=== PATIENT | female | born 1990 | race Caucasian/White ===

== ENCOUNTER → 2024-07-17 14:01 | Outpatient (REF) | payer OTHER, SELFPAY | LOC: PNTC 14:01 | PROVIDERS: ATTENDING PHYSICIAN Student in an Organized Health Care Education/Training Program | DX: O71.89 Other specified obstetric trauma (principal); O9A.219 Injury, poisoning and certain other consequences of external causes complicating pregnancy, unspecified trimester; O09.519 Supervision of elderly primigravida, unspecified trimester | CPT/HCPCS: 76805 ==

== ENCOUNTER 2024-07-21 23:03 | Emergency (ER) | payer OTHER, SELFPAY ==
[2024-07-21 23:07] VITALS: BP 154/100
[2024-07-21 23:37] LABS: Hematocrit 37.5 % (37.0-47.0); Hemoglobin 12.9 g/dL (12.0-16.0); Mean Corp Hgb Conc. 34.4 g/dL (33.0-37.0); Mean Corpuscular Hgb 32.5 pg (27.0-31.0); Mean Corpuscular Volume 94.5 fL (81.0-99.0); Mean Platelet Volume 9.4 fL (7.4-10.4); Platelet Count 245 10^3/uL (130-400); Red Blood Cell Count 3.97 10^6/uL (4.20-5.40); Red Cell Dist. Width 11.9 % (11.5-14.5); White Blood Cell Count 8.4 10^3/uL (4.8-10.8)
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
[2024-07-22 01:13] VITALS: BP 138/80
[2024-07-22 01:16] LABS: Urine Albumin 2+ (Neg - Trace); Urine Bilirubin Negative (Negative); Urine Character Slightly Cloudy (Clear); Urine Color Amber; Urine Glucose Negative (Negative); Urine Ketone Negative (Negative); Urine Leukocyte Negative (Negative); Urine Nitrite Negative (Negative); Urine Occult Blood 4+ (Negative); Urine Urobilinogen Negative (Neg - 1+)
[2024-07-22 02:10] LABS: Urine Red Blood Cell >100 /HPF (0-2); Urine Squamous Cell 16-20 /LPF (Few)
[2024-07-22 02:11] LABS: Urine Bacteria Few (Negative)
== END 2024-07-22 01:40 | disposition home or self-care (01) ==
LOC: EMR 23:03
PROVIDERS: Emergency Medicine; EMERGENCY PHYSICIAN Student in an Organized Health Care Education/Training Program; FAMILY PHYSICIAN Family Medicine
DX: O46.92 Antepartum hemorrhage, unspecified, second trimester (principal); O09.522 Supervision of elderly multigravida, second trimester; Z87.891 Personal history of nicotine dependence; Z3A.17 17 weeks gestation of pregnancy
CPT/HCPCS: 99284; 76801; 76817; 81003; 81015; 84702; 85027; 86850; 86870; 86900; 86901

== ENCOUNTER → 2024-10-07 13:35 | Outpatient (REF) | payer OTHER, SELFPAY | LOC: PNTC 13:35 | PROVIDERS: ATTENDING PHYSICIAN Obstetrics & Gynecology | DX: O36.0130 Maternal care for anti-D [Rh] antibodies, third trimester, not applicable or unspecified (principal); Z29.13 Encounter for prophylactic Rho(D) immune globulin | CPT/HCPCS: 36415; 86850; 86900; 86901; 96372; J2790 ==

== ENCOUNTER 2024-11-06 11:46 | Observation (INO) | payer OTHER, SELFPAY ==
[2024-11-06 11:58] VITALS: BP 125/79; BMI 34.4
[2024-11-06 12:25] LABS: % Basophils 0.4 % (0-2); % Eosinophils 0.4 % (0-6); % Immature Granulocytes 0.3 % (0-0.5); % Lymphocytes 17.8 % (20.5-51.1); % Neutrophils 73.1 % (42.2-75.2); Absolute Lymphocytes 1.9 10^3/uL (1.2-3.4); Absolute Monocytes 0.9 10^3/uL (0.1-0.6); Absolute Neutrophils 7.8 10^3/uL (1.4-6.5); Hematocrit 34.8 % (37.0-47.0); Mean Corp Hgb Conc. 34.5 g/dL (33.0-37.0); Mean Corpuscular Hgb 31.7 pg (27.0-31.0); Mean Corpuscular Volume 92.1 fL (81.0-99.0); Mean Platelet Volume 10.3 fL (7.4-10.4); Nucleated Red Blood Cells % 0 %; Platelet Count 239 10^3/uL (130-400); Red Blood Cell Count 3.78 10^6/uL (4.20-5.40); Red Cell Dist. Width 12.9 % (11.5-14.5); White Blood Cell Count 10.7 10^3/uL (4.8-10.8)
[2024-11-06 12:33] LABS: Urine Albumin Negative (Neg - Trace); Urine Bilirubin Negative (Negative); Urine Character Clear (Clear); Urine Color Yellow; Urine Glucose Negative (Negative); Urine Ketone Negative (Negative); Urine Leukocyte Negative (Negative); Urine Nitrite Negative (Negative); Urine Occult Blood Negative (Negative); Urine Urobilinogen Negative (Neg - 1+)
[2024-11-06 12:43] LABS: ALT (SGPT) 13 U/L (0-35); AST (SGOT) 21 U/L (14-36); Albumin 3.9 g/dl (3.5-5.0); Alkaline Phosphatase 59 U/L (38-126); Blood Urea Nitrogen 5 mg/dl (7-17); Calcium 9.4 mg/dl (8.4-10.2); Carbon Dioxide 23 mmol/L (22-30); Chloride 108 mmol/L (98-107); Estimated Creatinine Clearance > 125 ml/min; Glucose 90 mg/dl (70-99); Potassium 4.5 mmol/L (3.5-5.1); Sodium 137 mmol/L (135-145); Total Bilirubin 0.4 mg/dl (0.2-1.3); eGFR > 60.00
[2024-11-06 13:21] LABS: Protein/creatinine Ratio 0.3; Urine Protein 11 mg/dl
== END 2024-11-06 14:00 | disposition home or self-care (01) ==
LOC: PNTC-IN 11:46
PROVIDERS: ADMITTING PHYSICIAN Obstetrics & Gynecology
DX: O13.3 Gestational [pregnancy-induced] hypertension without significant proteinuria, third trimester (principal); Z3A.32 32 weeks gestation of pregnancy
CPT/HCPCS: 59025; 76816; 80053; 81003; 82570; 84156; 84550; 85025; G0378

== ENCOUNTER 2024-12-26 12:24 | Inpatient (IN) | payer OTHER, SELFPAY ==
[2024-12-26] MEDS: LR 1000 IV ×2 (11:55→14:00)
[2024-12-26 13:09] LABS: Hematocrit 37.2 % (37.0-47.0); Hemoglobin 12.8 g/dL (12.0-16.0); Mean Corp Hgb Conc. 34.4 g/dL (33.0-37.0); Mean Corpuscular Volume 93.7 fL (81.0-99.0); Nucleated Red Blood Cells % 0 %; Platelet Count 201 10^3/uL (130-400); Red Cell Dist. Width 13.2 % (11.5-14.5)
[2024-12-26 13:22] LABS: ALT (SGPT) 16 U/L (0-35); AST (SGOT) 26 U/L (14-36); Albumin 4.0 g/dl (3.5-5.0); Alkaline Phosphatase 93 U/L (38-126); Blood Urea Nitrogen 7 mg/dl (7-17); Calcium 9.3 mg/dl (8.4-10.2); Carbon Dioxide 21 mmol/L (22-30); Chloride 105 mmol/L (98-107); Glucose 95 mg/dl (70-99); Potassium 4.4 mmol/L (3.5-5.1); Sodium 134 mmol/L (135-145); Total Protein 7.0 g/dl (6.3-8.2); eGFR > 60.00
[2024-12-26] MEDS: SUBLIMAZE 100 MCG EPIDURAL (13:39)
[2024-12-26] MEDS: FENTANYL/BUPIVACAINE 100 EPIDURAL (13:50)
[2024-12-26 16:42] LABS: Cord ABG B.E. - POC -3.2 mmol/L; Cord ABG HCO3 - POC 26 mmol/L; Cord ABG O2 Sat % - POC 20.4 %; Cord ABG pCO2 - POC 66 mmHg; Cord ABG pH - POC 7.21; Cord ABG pO2 - POC 19 mmHg
[2024-12-26 16:47] LABS: Cord VBG B.E. - POC -2.3 mmol/L; Cord VBG HCO3 - POC 24 mmol/L; Cord VBG O2 Sat % - POC 47.2 %; Cord VBG pCO2 - POC 48 mmHg; Cord VBG pH - POC 7.31; Cord VBG pO2 - POC 28 mmHg
[2024-12-26] MEDS: TYLENOL 650 MG PO (20:16)
[2024-12-26] MEDS: MOTRIN 600 MG PO (20:16)
[2024-12-26] MEDS: COLACE 100 MG PO (20:16)
[2024-12-27] MEDS: TYLENOL 650 MG PO ×3 (05:15→17:44)
[2024-12-27] MEDS: MOTRIN 600 MG PO ×3 (05:16→17:44)
[2024-12-27 05:26] LABS: Hematocrit 32.8 % (37.0-47.0); Hemoglobin 11.1 g/dL (12.0-16.0)
[2024-12-27] MEDS: COLACE 100 MG PO ×2 (09:12→20:28)
[2024-12-27] MEDS: PRENATAL PLUS 1 TABLET PO (09:12)
[2024-12-27] MEDS: RHOGAM 300 MCG IM (12:03)
[2024-12-28] MEDS: TYLENOL 650 MG PO ×2 (06:08→12:11)
[2024-12-28] MEDS: MOTRIN 600 MG PO ×2 (06:08→12:12)
[2024-12-28] MEDS: PRENATAL PLUS 1 TABLET PO (09:03)
[2024-12-28] MEDS: COLACE 100 MG PO (09:03)
[2024-12-28] MEDS: M-M-R II 0.5 ML SC (11:05)
[2024-12-28] MEDS: ADACEL 0.5 ML IM (11:07)
[2024-12-30 12:56] LABS: Syphilis/T. pallidum Ab Reflex Negative (Negative)
== END 2024-12-28 13:18 | disposition home or self-care (01) | DRG 807 ==
LOC: LDRP 12:24
PROVIDERS: Obstetrics & Gynecology; ADMITTING PHYSICIAN Obstetrics & Gynecology
PROC: 10E0XZZ Delivery of Products of Conception, External Approach (ICD-10-PCS; 2024-12-26)
PROC: 0KQM0ZZ Repair Perineum Muscle, Open Approach (ICD-10-PCS; 2024-12-26)
PROC: 3E0234Z Introduction of Serum, Toxoid and Vaccine into Muscle, Percutaneous Approach (ICD-10-PCS; 2024-12-27)
PROC: 3E0134Z Introduction of Serum, Toxoid and Vaccine into Subcutaneous Tissue, Percutaneous Approach (ICD-10-PCS; 2024-12-28)
DX: O42.02 Full-term premature rupture of membranes, onset of labor within 24 hours of rupture (principal); Z37.0 Single live birth; Z3A.39 39 weeks gestation of pregnancy; O70.1 Second degree perineal laceration during delivery; O69.1XX0 Labor and delivery complicated by cord around neck, with compression, not applicable or unspecified; O43.123 Velamentous insertion of umbilical cord, third trimester; O66.0 Obstructed labor due to shoulder dystocia; Z23 Encounter for immunization; Z98.82 Breast implant status
CPT/HCPCS: 36415; 80053; 85014; 85018; 85025; 85461; 86780; 86850; 86870; 86900; 86901; 88307; 90707; 90715; J2790